=== PATIENT | male | born 1975 | race African-American/Black ===

== ENCOUNTER 2020-11-17 20:53 | Emergency (ER) | payer OTHER ==
[~2020-11-17] VITALS: Ht 167.6 cm; Wt 79.4 kg
[~2020-11-17 20:53] MED LIST: SEPTRA DS TABLE1 TAB PO
[2020-11-17] MEDS ORDERED: CLONAZEPAM1 M1 PO (21:02)
[2020-11-17] MEDS ORDERED: VISTARIL25 MG PO (21:03)
[2020-11-17] MEDS ORDERED: RESTORIL15 M1 PO (21:03)
[2020-11-17] MEDS ORDERED: SERTRALINE20 MG/1 ML PO (21:04)
[2020-11-17] MEDS ORDERED: ZOLOFT25 MG PO (21:04)
== END 2020-11-17 22:47 | disposition home or self-care (01) ==
LOC: ER 20:53
DX: R00.2 Palpitations (principal); F41.8 Other specified anxiety disorders

== ENCOUNTER 2021-01-08 10:09 | Emergency (ER) | payer OTHER ==
[~2021-01-08] VITALS: Ht 167.6 cm; Wt 77.1 kg
[~2021-01-08 10:09] MED LIST changes: +CLONAZEPAM1 M1 PO; +RESTORIL15 M1 PO; +SERTRALINE20 MG/1 ML PO; +VISTARIL25 MG PO; +ZOLOFT25 MG PO
== END 2021-01-08 21:09 | disposition home or self-care (01) ==
LOC: ER 10:09
DX: R53.81 Other malaise (principal); R53.83 Other fatigue; R00.2 Palpitations; F06.4 Anxiety disorder due to known physiological condition

== ENCOUNTER 2021-01-20 19:40 | Emergency (ER) | payer OTHER ==
[~2021-01-20] VITALS: Ht 167.6 cm; Wt 80.3 kg
[2021-01-20] MEDS ORDERED: SERTRALINE20 MG/1 ML (20:00)
== END 2021-01-22 13:39 | disposition home or self-care (01) ==
LOC: ER 19:40 → CPU-OBS 19:49 → ER 01-22 13:39
DX: R07.89 Other chest pain (principal); R00.2 Palpitations; B34.9 Viral infection, unspecified; F06.4 Anxiety disorder due to known physiological condition; R53.81 Other malaise; Z11.52 Encounter for screening for COVID-19
CPT/HCPCS: G0378; G0379; 93005; 78452; 93017; A9500; J0153; 93306

== ENCOUNTER 2023-02-08 09:10 | Emergency (ER) | payer OTHER ==
[~2023-02-08] VITALS: Ht 167.6 cm; Wt 77.1 kg
[~2023-02-08 09:10] MED LIST changes: +SERTRALINE20 MG/1 ML
[2023-02-08] MEDS ORDERED: PEPCID AC20 MG PO (13:15)
[2023-02-08] MEDS ORDERED: DUI500 PO (13:15)
== END 2023-02-08 13:23 | disposition home or self-care (01) ==
LOC: ER 09:10
DX: R10.9 Unspecified abdominal pain (principal); M79.604 Pain in right leg; Z91.013 Allergy to seafood; F41.8 Other specified anxiety disorders; Z20.822 Contact with and (suspected) exposure to COVID-19

== ENCOUNTER 2024-09-10 13:26 | Emergency (ER) | payer OTHER ==
[~2024-09-10] VITALS: Ht 167.6 cm; Wt 80.7 kg
[~2024-09-10 13:26] MED LIST changes: +DUI500 PO; +PEPCID AC20 MG PO
[2024-09-10] MEDS ORDERED: KETOROLAC TROMETHAMINE 60 MG VIAL IM STA (14:18)
[2024-09-10] MEDS ORDERED: KETOROLAC TROMETHAMINE 60 MG VIAL IM ONE (15:41)
[2024-09-10 16:22] LABS: HEMATOCRIT 37.9 % (39.0-48.0); MEAN CELL VOLUME 87.4 fL (80.0-100.00); MEAN CORPUSCULAR HGB CONC 34.3 g/dl (32.0-36.0); PLATELET COUNT 151 K/uL (150-450); RED BLOOD COUNT 4.34 M/uL (4.00-6.00); RED CELL DISTRIBUTION WIDTH 13.9 % (11.5-14.5)
== END 2024-09-10 16:54 | disposition home or self-care (01) ==
LOC: ER 13:29
PROVIDERS: General Practice
DX: R51.9 Headache, unspecified (principal); Z91.013 Allergy to seafood; Z20.822 Contact with and (suspected) exposure to COVID-19